=== PATIENT | male | born 1995 | race Caucasian/White ===

== ENCOUNTER → 2021-03-08 | Day surgery (SDC) | payer OTHER ==
[~2021-03-08] VITALS: Ht 177.8 cm; Wt 52.2 kg
[~2021-03-08] MED LIST: LEXAPRO5 MG PO
[2021-03-08 11:57] LABS: HEMOGLOBIN 17.3 gm/dl (14.0-17.5); RED BLOOD COUNT 5.26 M/UL (4.20-5.50); WHITE BLOOD COUNT 11.9 K/UL (4.5-11.0)
[2021-03-08 12:18] LABS: BUN/CREATININE RATIO 16 (0-10)
== END | disposition home or self-care (01) ==
LOC: OR 11:03
PROVIDERS: Orthopaedic Surgery
DX: S62.615A Displaced fracture of proximal phalanx of left ring finger, initial encounter for closed fracture (principal); W23.1XXA Caught, crushed, jammed, or pinched between stationary objects, initial encounter; F41.9 Anxiety disorder, unspecified; Z20.822 Contact with and (suspected) exposure to COVID-19
CPT/HCPCS: 73130; 76000; 80048; 85025; C1713; J0690; J1100; J1170; J1885; J2001; J2250; J2405; J2704; J3010; J7120; U0002